=== PATIENT | male | born 1990 | race Caucasian/White ===

== ENCOUNTER 2016-09-09 19:00 | Emergency (ER) | payer OTHER ==
[2016-09-09 19:24] VITALS: BP 118/67; PULSE 69; TEMP 97.7; BMI 30.9
--- NOTE | 2016-09-09 21:09 | PDOC ---
History of Present Illness - General Chief Complaint: Pain Stated Complaint: INJURY Time Seen by Provider: 09/09/16 20:16 History Source: Patient Exam Limitations: No Limitations - History of Present Illness Initial Comments: 09/09/16 21:10 Chief complaint: Ankle injury Patient 26-year-old male who states he injured his right ankle yesterday playing rugby, can walk on it but has swelling and discoloration. No other injuries GENERAL/CONSTITUTIONAL: No fever, weakness. dizziness HEAD, EYES, EARS, NOSE AND THROAT: No change in vision. No ear pain or discharge. No sore throat. CARDIOVASCULAR: No chest pain RESPIRATORY: No shortness of breath or cough GASTROINTESTINAL: No pain, nausea, vomiting, diarrhea or constipation GENITOURINARY: No dysuria MUSCULOSKELETAL: No neck or back pain, + right ankle SKIN: No rash NEUROLOGIC: No headache, vertigo, loss of consciousness, or loss of sensation. GENERAL: The patient is awake, alert, and fully oriented, in no acute distress. HEAD: Normal with no signs of trauma. EYES: Pupils equal, round and reactive to light, sclera anicteric, conjunctiva clear. NECK: supple no Respiratory distress EXTREMITIES: Right ankle with minimal swelling, no deformity, good range of motion, ecchymosis dependently on the lateral aspect on the foot, no tenderness to the fifth metatarsal, no other tenderness or deformities, neurovascular intact. Other extremities, Normal range of motion, no edema. NEUROLOGICAL: Normal speech, normal gait. SKIN: Warm, Dry Past History - Past Medical History Allergies/Adverse Reactions: Allergies Allergy/AdvReac Type Severity Reaction Status Date / Time No Known Allergies Allergy Verified 09/09/16 19:21 Home Medications: Ambulatory Orders NK [No Known Home Medication] 09/09/16 Other medical history: Pt denies - Psycho/Social/Smoking Cessation Hx Suicidal Ideation: No Smoking History: Never smoked Hx Alcohol Use: No Drug/Substance Use Hx: No Substance Use Type: None *Physical Exam - Vital Signs Last Vital Signs Temp Pulse Resp BP Pulse Ox 97.7 F 69 20 118/67 100 09/09/16 19:22 09/09/16 19:22 09/09/16 19:22 09/09/16 19:22 09/09/16 19:22 ED Treatment Course - RADIOLOGY Radiology Studies Ordered: Category Date Time Status ANKLE & FOOT-RIGHT* [RAD] Stat Radiology 09/09/16 20:16 Taken Medical Decision Making - Medical Decision Making 09/09/16 21:25 Ankle injury, x-ray shows no fracture or dislocation, patient has a stable joint as able to ambulate easily and has an orthopedist from prior injury but cannot remember his name right now, he will follow up if any further issues *DC/Admit/Observation/Transfer Diagnosis at time of Disposition: Ankle sprain Qualifiers: Encounter type: initial encounter Involved ligament of ankle: unspecified ligament Laterality: right Qualified Code(s): S93.401A - Sprain of unspecified ligament of right ankle, initial encounter - Discharge Dispostion Disposition: HOME Condition at time of disposition: Stable Admit: No - Patient Instructions Printed Discharge Instructions: Ankle Sprain Additional Instructions: Elevate You can apply ice for 20 minutes every 2 hours for the next 2 days Motrin 600 mg every 6 hours for pain. Call the orthopedist tomorrow
== END 2016-09-09 21:31 | disposition home or self-care (01) ==
LOC: JERFT 19:00 → JER 19:00 → JERFT 21:31
DX: S93.401A Sprain of unspecified ligament of right ankle, initial encounter (principal); X50.0XXA Overexertion from strenuous movement or load, initial encounter; X50.9XXA Other and unspecified overexertion or strenuous movements or postures, initial encounter; Y93.63 Activity, rugby; Y92.328 Other athletic field as the place of occurrence of the external cause; Y99.8 Other external cause status
CPT/HCPCS: 73610-TC-RT; 73630-TC-RT; 99281-25

== ENCOUNTER 2016-11-24 08:32 | Day surgery (SDC) | payer OTHER ==
[2016-11-20 14:53] VITALS: BMI 26.1
[2016-11-24] MEDS ORDERED: PROPOFOL 20 ML ONE ×2 (09:24→12:59)
[2016-11-24] MEDS ORDERED: LIDOCAINE HCL/PF 2% SDV 5ML VIAL ONE (09:24)
[2016-11-24] MEDS ORDERED: ROCURONIUM BROMIDE 50 MG/5 ML VIAL ONE ×3 (09:24→12:59)
--- NOTE | 2016-11-24 10:14 | HP ---
History & Physical Update - History History: No Change - Physical Physical: No Change - Assessment Assessment: No Change - Plan Plan: No Change Currently as noted:: Left inguinal hernia
[2016-11-24] MEDS ORDERED: MIDAZOLAM HCL 2 MG/2 ML SINGLE DOSE VIAL ONE (10:48)
[2016-11-24] MEDS ORDERED: ceFAZolin SODIUM 1 GM VIAL IVPB ONE (11:15)
[2016-11-24] MEDS ORDERED: ceFAZolin SODIUM 1 GM VIAL ONE (11:22)
[2016-11-24] MEDS ORDERED: DEXAMETHASONE SOD PHOSPHATE 4 MG/1 ML VIAL ONE (11:22)
[2016-11-24] MEDS ORDERED: BUPIVACAINE HCL/PF 0.5% (5MG/ML) 10 ML VIAL IJ ONE (11:46)
[2016-11-24] MEDS ORDERED: NEOSTIGMINE METHYLSULFATE 0.5 MG/ML - 10 ML MDV ONE (12:03)
--- NOTE | 2016-11-24 13:17 | OP ---
Operative Note - Note: Operative Date: 11/24/16 Pre-Operative Diagnosis: left inguinal hernia Operation: robotic assisted left inguinal hernia reapir with mesh, primary repair of umbilical hernia Findings: left inguinal hernia, umbilical hernia Surgeon: Marcel Marin Set Up Mechanic: Zelda Figueroa Anesthesiologist/[employer] FORMER SUPERVISOR: Mohini Zhu Anesthesia: General Estimated Blood Loss (mls): 20 Fluid Volume Replaced (mls): 1,200 Operative Report Dictated: Yes
--- NOTE | 2016-11-24 13:19 | SURG ---
Surgery Interactive Media Marketing Strategist Note Interactive Media Marketing Strategist: Zelda Figueroa PA-C Date of Service: 11/24/16 Diagnosis: left inguinal hernia Procedure: robotic assisted repair of left inguinal hernia with mesh, primary repair of umbilical hernia I was present for the entirety of the operative procedure. For further detail, please refer to operative report. Visit type - Case Type Case Type: Scheduled Admission - Emergency Emergency Visit: No - New patient This patient is new to me today: Yes Date on this admission: 11/24/16 - Critical Care Critical Care patient: No
[2016-11-24] MEDS ORDERED: ONDANSETRON 4 MG/2 ML VIAL IVPB PRN (13:20)
[2016-11-24] MEDS ORDERED: HYDROmorphone HCL CARPU-JECT 1 MG/1 ML DISP.SYRIN IVPB PRN (13:20)
[2016-11-24] MEDS ORDERED: ACETAMINOPHEN 325 MG TABLET (FP) PO PRN (13:20)
[2016-11-24] MEDS ORDERED: PROMETHAZINE HCL 25 MG/1 ML VIAL IVPUSH PRN (13:30)
[2016-11-24] MEDS ORDERED: D5-1/2NS+20 MEQ KCL - 1,000 ML IV SCH (13:30)
[2016-11-24] MEDS ORDERED: LACTATED RINGERS SOLUTION 1,000 ML IV SCH (13:30)
[2016-11-24] MEDS ORDERED: ONDANSETRON 4 MG/2 ML VIAL IVPUSH PRN (13:30)
[2016-11-24 15:34] VITALS: TEMP 98.4
[2016-11-24] MEDS ORDERED: oxyCODONE HCL 5 MG TABLET PO PRN ×2 (15:47)
[2016-11-24] MEDS: oxyCODONE HCL 5 MG TABLET ONE ×2 (15:50→18:31)
--- NOTE | 2016-11-24 18:03 | SPEC ---
DATE OF OPERATION: 11/24/2016 SURGEON: Marcel Marin MD STERILE PROCESS COORDINATOR: IDALMIS Pichardo PREOPERATIVE DIAGNOSIS: Left inguinal hernia. POSTOPERATIVE DIAGNOSIS: Left inguinal hernia, umbilical hernia. PROCEDURE: Robotic left inguinal hernia repair with mesh and primary open umbilical hernia repair. SPECIMENS: None. ESTIMATED BLOOD LOSS: 5 mL DRAINS: None. ANESTHESIA: GET. REASON FOR PROCEDURE: This is a 26-year-old gentleman who presented to the office for evaluation of a left inguinal hernia. He was found to have evidence of a left inguinal hernia on exam. Because of this, he was consented for robotic, possible open laparoscopic inguinal hernia repair with mesh. RISKS AND BENEFITS: The risks and benefits of a Robotic, possible open left inguinal hernia repair, possible bilateral inguinal hernia repair with mesh were explained. These included bleeding, infection, recurrence of hernia, ID, DVT, PE, new hernia, mesh infection, injury to surrounding structures, including the colon, bowel, bladder, ureter, spermatic cord, spermatic vessels, vas deferens, vessel injury, nerve injury, testicular injury, including testicular atrophy and possible testicular loss, and as some of the possible complications. The patient understood and signed informed consent. DESCRIPTION OF PROCEDURE: The patient was placed supine on the operating table. The patient underwent general endotracheal intubation. A Yung catheter was inserted. The arms were tucked at the side and he was placed on a beanbag device. The abdomen was prepped and draped in the usual sterile fashion. A time-out was performed. A periumbilical incision was made and entrance into the abdominal cavity was obtained using an 8-mm robotic optical trocar under direct visualization with the laparoscope. Pneumoperitoneum was established. Subsequently, 2 additional 8-mm trocars were placed, one approximately 6 to 7 cm to the left of the umbilicus and one 6 to 7 cm to the right of the umbilicus. The patient was placed in steep Trendelenburg [id number] position. The robot was brought over the field and docked. Dissection was performed at the console. The peritoneum was opened using robotic Endo Kamala. The preperitoneal space over the left inguinal region was dissected. The epigastric vessels were identified and dissected toward the anterior abdominal wall. Dissection in the preperitoneal space was continued from the medial umbilical ligament towards the anterior-superior iliac spine. Medially, dissection was performed until Percy's ligament and the pubis were identified. Lateral to this, the spermatic cord structures, including the vas deferens, were identified. The contents of the hernia sac were identified and dissected down to the retroperitoneum. At this point, hemostasis was identified. Again, all of the hernia content was noted to be completely dissected and noted to have no retraction back to its original position. A Symbotex mesh was then chosen, irrigated and inserted into the abdominal cavity to cover the entire myopectineal orifice. The mesh was secured medially at the pubis and superolaterally to the abdominal wall with sutures. The mesh was noted to be in good position. The hernia was again noted to be fully reduced and without any tension. At this point, the peritoneal flap was closed using a 2-0 V-Loc suture. Again, hemostasis was identified. All needles were removed from the field and the count was confirmed to be correct. The robotic instruments were removed. The robot was undocked and removed from the operative field. The patient was placed supine. Pneumoperitoneum was desufflated. All trocars were removed. All incision sites were irrigated and Marcaine was injected in all incision sites. Hemostasis was noted at all incision sites. In addition, there was noted to be a small umbilical hernia defect. The hernia content was dissected and hernia content removed. The defect was closed and repaired using a 0 Vicryl suture in a figure-of-8 fashion. All incision sites were closed using 4-0 Biosyn. Sterile dressings were applied. The Yung catheter was removed. The patient tolerated the procedure well and was transferred to the recovery room in stable condition. Gracie [id number] MTDD
[2016-11-24] MEDS ORDERED: oxyCODONE HCL 5 MG TABLET ONE (18:35)
[2016-11-24 20:21] VITALS: BP 122/64; PULSE 74
== END 2016-11-24 19:55 | disposition home or self-care (01) ==
LOC: JASUSAT 08:32
PROVIDERS: ATTEND Surgery
PROC: 0YU64JZ Supplement Left Inguinal Region with Synthetic Substitute, Percutaneous Endoscopic Approach (ICD-10-PCS; 2016-11-24)
PROC: 8E0W4CZ Robotic Assisted Procedure of Trunk Region, Percutaneous Endoscopic Approach (ICD-10-PCS; 2016-11-24)
PROC: 0WQF0ZZ Repair Abdominal Wall, Open Approach (ICD-10-PCS; principal; 2016-11-24 10:00)
DX: K40.90 Unilateral inguinal hernia, without obstruction or gangrene, not specified as recurrent (principal); K42.9 Umbilical hernia without obstruction or gangrene
CPT/HCPCS: 49585; 49650; S2900; 94760

== ENCOUNTER 2017-09-15 20:55 | Emergency (ER) | payer OTHER ==
[2017-09-15 21:01] VITALS: BP 129/58; PULSE 75; BMI 23.6
--- NOTE | 2017-09-15 21:03 | PDOC ---
Rapid Medical Evaluation Chief Complaint: Laceration Time Seen by Provider: 09/15/17 20:59 Medical Evaluation: Allergies Allergy/AdvReac Type Severity Reaction Status Date / Time No Known Allergies Allergy Verified 11/20/16 14:53 09/15/17 21:01 27 year old male cut upper lip on wood chip today. unsure if it need stitches, tetanus uptodate PE: small 0.5 cm laceration to upper ip. dentition intact lip laceration Plan patient to the fast track for further management of care.
--- NOTE | 2017-09-15 21:31 | PDOC ---
History of Present Illness - General Chief Complaint: Laceration Stated Complaint: LACERATION Time Seen by Provider: 09/15/17 20:59 - History of Present Illness Initial Comments: 27-year-old healthy active male without any significant past medical history surgical history no ALLERGIES to medication presents for evaluation of a laceration which he sustained work after getting hit in the face with a piece of wood. He denies loss of consciousness headache or any other associated symptoms 09/15/17 21:22 Past History - Past Medical History Allergies/Adverse Reactions: Allergies Allergy/AdvReac Type Severity Reaction Status Date / Time No Known Allergies Allergy Verified 09/15/17 20:59 Home Medications: Ambulatory Orders NK [No Known Home Medication] 09/15/17 Anemia: No Asthma: No Cancer: No Cardiac Disorders: No CVA: No COPD: No CHF: No Dementia: No Diabetes: No GI Disorders: No Disorders: No HTN: No Hypercholesterolemia: No Liver Disease: No Seizures: No Thyroid Disease: No - Surgical History Abdominal Surgery: No Appendectomy: No Cardiac Surgery: No Cholecystectomy: No Lung Surgery: No Neurologic Surgery: No Orthopedic Surgery: No - Immunization History Immunization Up to Date: Yes - Suicide/Smoking/Psychosocial Hx Smoking History: Never smoked Hx Alcohol Use: Yes (SOCIALLY) Drug/Substance Use Hx: No Substance Use Type: None Hx Substance Use Treatment: No Review of Systems - Review of Systems All Other Systems: Reviewed and Negative *Physical Exam - Vital Signs Last Vital Signs Temp Pulse Resp BP Pulse Ox 75 15 129/58 96 09/15/17 20:59 09/15/17 20:59 09/15/17 20:59 09/15/17 21:15 - Physical Exam Comments: There is an extremely small subcentimeter serration on the lateral aspect of the left upper lip. The wound was explored no foreign body. 09/15/17 21:23 General Appearance: Yes: Nourished HEENT: positive: EOMI, FRIDA, Normal ENT Inspection, Normal Voice Procedures - Laceration/Wound Repair Upper Lateral Lip Wound Length: to 2.5 cm Wound Explored: clean, no foreign body present Wound's Depth, Shape: superficial Irrigated w/ Saline: Yes Betadine Prep: Yes Wound Debrided: minimal Wound Repaired With: Sutures Suture Size/Type: 6:0 Number of Sutures: 1 Sterile Dressing Applied: No Splint Applied: No Sling Applied: No Medical Decision Making - Medical Decision Making Is up-to-date on his tetanus 09/15/17 21:24 *DC/Admit/Observation/Transfer Diagnosis at time of Disposition: Laceration of lip - Discharge Dispostion Disposition: HOME Condition at time of disposition: Stable Decision to Admit order: No - Referrals Referrals: Tessa Carreno MD [Primary Care Provider] - - Patient Instructions Printed Discharge Instructions: DI for Laceration Repair Additional Instructions: Tereso follow-up in our emergency room in 7-10 days or with her primary care provider for suture removal of note please remember to tell your provider who removes his sutures that there is only one suture in place. Return to the emergency room if he had any symptoms such as headache nausea or vomiting. He may take Tylenol for pain - Post Discharge Activity
== END 2017-09-15 21:35 | disposition home or self-care (01) ==
LOC: JERFT 20:55
PROC: 0CQ0XZZ Repair Upper Lip, External Approach (ICD-10-PCS; principal; 2017-09-15)
DX: S01.511A Laceration without foreign body of lip, initial encounter (principal); W22.8XXA Striking against or struck by other objects, initial encounter; Y93.H3 Activity, building and construction; Y92.69 Other specified industrial and construction area as the place of occurrence of the external cause; Y99.0 Civilian activity done for income or pay
CPT/HCPCS: 99281-25

== ENCOUNTER 2019-03-11 21:38 | Emergency (ER) | payer OTHER ==
[2019-03-11 21:48] VITALS: BP 128/68; PULSE 96; TEMP 98.4; BMI 24.3
--- NOTE | 2019-03-11 22:45 | PDOC ---
History of Present Illness - General Chief Complaint: Wound Stated Complaint: SX WOUND Time Seen by Provider: 03/11/19 22:19 History Source: Patient Exam Limitations: No Limitations - History of Present Illness Initial Comments: HPI: 29 y/o male presenting to [facility] ER complaining of bleeding from post-operative site. 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 He was warned not to engage in contact sports for 4-6 weeks but he had a rugby match this weekend that he had to win. The stitches came apart after taking a head. Has not attempted to contact the performing physician. Medical Hx: - Pt denies past medical history. Denies prescription medications. Review of Systems: In addition to that documented in the HPI above, the additional ROS was obtained : Constitutional- Denies fevers or chills ENMT- Denies sore throat CV- Denies chest pain Resp- Denies SOB GI- Denies vomiting or diarrhea - Denies dysuria, hematuria, or urinary frequency Physical Examination: Constitutional- Well-developed, well-nourished adult male in no acute distress or obvious discomfort. Found sitting upright on hospital chair. Answered all questions appropriately and completely. Head- Normocephalic. Approx. 3cm full thickness linear laceration with exposed dermal tissue to right side of nose. No active bleeding. Cardiovascular / Chest- Normocardic. Respiratory- Breathing unlabored. Speaking in complete sentences. Neuro- Alert and oriented x4. Moving all four extremities spontaneously. Skin- Slaughter, warm, and dry. Psych- Affect- appropriate. Mood- normal. Speech was non-labored, non- pressured. MDM: *Reviewed vital signs, nursing notes, and prior visit documentation (if available). 29 y/o male presenting with wound dehiscence. Afebrile. Vitals unremarkable for hypotension or tachycardia. Physical exam as described above. Area was cleaned and sutured. See procedure section. Ordered Tylenol for pain and Boostrix. 11 Mar 2019 22:31 PM Page sent for Dr. Davalos ([phone]) through office answering service. Awaiting call back. 11 Mar 2019 22:58 PM Second page sent for Dr. Davalos through office answering service. Awaiting call back. 11 Mar 2019 23:05 AM Telephone discussion with attending covering for Dr. Baumann. Verbally appraised of the pts HPI, ED course, and current plan of management. Stated he was unable to see the pt this evening. Requested the wound be closed and pt to f/u in clinic this week. Discussed physical exam findings with pt. Answered all questions. Provided return precautions. Pt expressed verbal understanding and agreement with plan to discharge home with outpatient follow up. Santi Partida M.D., PGY2 Emergency Medicine Resident Past History - Past Medical History Allergies/Adverse Reactions: Allergies Allergy/AdvReac Type Severity Reaction Status Date / Time No Known Allergies Allergy Verified 03/11/19 21:48 Home Medications: Ambulatory Orders NK [No Known Home Medication] 09/15/17 Anemia: No Asthma: No Cancer: No Cardiac Disorders: No CVA: No COPD: No CHF: No Dementia: No Diabetes: No GI Disorders: No Disorders: No HTN: No Hypercholesterolemia: No Liver Disease: No Seizures: No Thyroid Disease: No - Surgical History Abdominal Surgery: No Appendectomy: No Cardiac Surgery: No Cholecystectomy: No Lung Surgery: No Neurologic Surgery: No Orthopedic Surgery: No - Immunization History Immunization Up to Date: Yes - Psycho Social/Smoking Cessation Hx Smoking History: Never smoked Have you smoked in the past 12 months: No Information on smoking cessation initiated: No Hx Alcohol Use: No Drug/Substance Use Hx: No Substance Use Type: None Hx Substance Use Treatment: No *Physical Exam - Vital Signs Last Vital Signs Temp Pulse Resp BP Pulse Ox 98.4 F 96 H 18 128/68 95 03/11/19 21:46 03/11/19 21:46 03/11/19 21:46 03/11/19 21:46 03/11/19 21:46 Procedures - Additional Procedures Progress: PROCEDURE NOTE: Wound Closure with Sutures PROCEDURE CRM ANALYST: Santi Partida INDICATION: Post-op wound dehiscence CONSENT: Consent was obtained from the patient prior to the procedure. Indications, risks , and benefits were explained at length. PROCEDURE SUMMARY: Patient was positioned appropriately. 3cc lidocaine 1 percent without epinephrine was used as a local anesthetic. 60cc sterile NaCl was used for irrigation. Wound thoroughly irrigated and explored; no foreign bodies were found. Patient was sterile draped with wound exposed. 6 x 6-0 nylon sutures were placed with good approximation. Procedure tolerated without complications. Layer closure and hemostasis was achieved. Wound dressed with bacitracin and sterile gauze. Post suture instructions provided. EBL: <5cc. Post procedure care and follow up instructions provided verbally. Pt expressed understanding. Discharge - Discharge Information Problems reviewed: Yes Clinical Impression/Diagnosis: Injury while playing rugby league Laceration of nose without foreign body Qualifiers: Encounter type: initial encounter Qualified Code(s): S01.21XA - Laceration without foreign body of nose, initial encounter Surgical wound dehiscence Qualifiers: Encounter type: initial encounter Qualified Code(s): T81.31XA - Disruption of external operation (surgical) wound, not elsewhere classified, initial encounter Condition: Improved Disposition: HOME - Admission No - Follow up/Referral - Patient Discharge Instructions Additional Instructions: You were seen today for evaluation of your post-op site. The wound dehisced while you were playing rugby. The laceration was closed with 6 stitches. You were given a tetanus booster today. This immunization is good for 10 years. You can take over the counter Tylenol or Advil as needed for pain. Take as directed on the package insert. Do not exceed the recommended dosage. Follow up with your hearing aid dispenser on Wednesday morning to have him evaluate the area. In the meantime, keep the area clean and dry. You can shower but do not submerge the area. Go to the nearest emergency department if your condition worsens or you feel like you need additional emergency evaluation. Watch for redness, puss, or fevers as these can be a sign of a more serious infection. Print Language: GABONESE - Post Discharge Activity
[2019-03-11] MEDS ORDERED: LIDOCAINE 2.5%/PRILOCAINE 2.5% (5 Gram/TUBE) TP ONE ×2 (22:47→22:57)
--- NOTE | 2019-03-11 22:54 | PDOC ---
Attending Attestation - Resident Resident Name: Santi Partida - ED Attending Attestation I have performed the following: I have examined & evaluated the patient, The case was reviewed & discussed with the resident, I agree w/resident's findings & plan - HPI HPI: 03/11/19 22:53 Pt's right nasal wound dehisced while he was plating rugby today. Pt's sutures all popped and he has a 1 inch long open wound on the right nare. - Physicial Exam PE: 03/12/19 00:21 A+Ox3 NAD; pt appears well Normal exam Heart and lungs clear No head or neck injury Pt has no septal hematoma. 03/12/19 00:25 Agree with resident exam - Medical Decision Making 03/12/19 00:26 Pt will be sent home after tdap vaccine 03/12/19 00:27 Pt's case was discussed with the plastic surg group who was taking care of the patient.
[2019-03-11] MEDS ORDERED: ACETAMINOPHEN 500 MG TABLET (FP) PO ONE (23:33)
[2019-03-11] MEDS ORDERED: ACETAMINOPHEN 325 MG TABLET (FP) ONE (23:34)
[2019-03-12] MEDS ORDERED: DIPHTH,PERTUSS(ACELL),TET 0.5 ML DISP.SYRIN IM ONE ×2 (00:12→00:23)
== END 2019-03-12 00:38 | disposition home or self-care (01) ==
LOC: JER 21:38
PROC: 0HQ1XZZ Repair Face Skin, External Approach (ICD-10-PCS; principal; 2019-03-11)
PROC: 3E0234Z Introduction of Serum, Toxoid and Vaccine into Muscle, Percutaneous Approach (ICD-10-PCS; 2019-03-11)
DX: T81.31XA Disruption of external operation (surgical) wound, not elsewhere classified, initial encounter (principal); S01.21XA Laceration without foreign body of nose, initial encounter; W50.0XXA Accidental hit or strike by another person, initial encounter; Y93.63 Activity, rugby; Y92.328 Other athletic field as the place of occurrence of the external cause; Y99.8 Other external cause status; L76.82 Other postprocedural complications of skin and subcutaneous tissue; Z85.828 Personal history of other malignant neoplasm of skin
CPT/HCPCS: 90715; 99282-25